=== PATIENT | female | born 1970 | race Hispanic/Latino ===

== ENCOUNTER → 2019-11-11 | Outpatient (CLI) | payer OTHER ==
[~2019-11-11] MED LIST: CETI10TA57 PO; ERGO2000 PO; METF-910 PO; METO50TA18 PO; MILK175C5 PO; OMEP40CA13 PO; THYR97.5 PO; [UNRECOGNIZED DRUG - OTHER] PO
[2019-11-11 16:32] LABS: BASOPHILS % (AUTO) 0.6 % (0.0-5.0); EOSINOPHILS % (AUTO) 2.4 % (0.0-8.0); HEMATOCRIT 43.7 % (36-48); LYMPHOCYTES % (AUTO) 29.7 % (21.0-51.0); MEAN CORPUSCULAR HEMOGLOBIN 28.2 pg (27.0-33.0); MEAN CORPUSCULAR HGB CONC 32.7 g/dL (32.0-36.0); MEAN CORPUSCULAR VOLUME 86.2 fL (79-99); MONOCYTES % (AUTO) 6.9 % (3.0-13.0); PLATELET COUNT (AUTO) 216 K/uL (130-400); RED BLOOD CELL COUNT(AUTO) 5.07 MIL/uL (4.00-5.50); WHITE BLOOD COUNT (AUTO) 6.7 K/uL (4.8-10.8)
[2019-11-11 16:40] LABS: INR 0.92 (0.85-1.15)
[2019-11-11 16:51] LABS: ALBUMIN 3.7 g/dL (3.5-5.0); BILIRUBIN,TOTAL 0.7 mg/dL (0.2-1.0); CREATININE 0.7 mg/dL (0.5-1.5); POTASSIUM 3.4 mmol/L (3.5-5.1); TOTAL PROTEIN, SERUM 7.1 g/dL (6.0-8.3)
[2019-11-11 17:03] LABS: FERRITIN 161 ng/mL (15-150); IRON, SERUM 101 mcg/dL (50-170)
[2019-11-13 08:13] LABS: HEPATITIS A ANTIBODY IGM Negative (Negative); HEPATITIS B CORE IGM Negative (Negative); HEPATITIS Bs ANTIGEN SCREEN P Negative (Negative)
[2019-11-16 16:10] LABS: ALPHA-1-ANTITRYPSIN 110 mg/dL (101-187)
== END | disposition home or self-care (01) ==
LOC: LAB 14:54
PROVIDERS: ATTEND Internal Medicine Gastroenterology
DX: Z03.818 Encounter for observation for suspected exposure to other biological agents ruled out (principal); R93.2 Abnormal findings on diagnostic imaging of liver and biliary tract
CPT/HCPCS: 36415; 80053; 80061; 81220; 82103; 82104; 82105; 82150; 82390; 82728; 83516; 83540; 83690; 85025; 85610; 86038; 86215; 86235 ×7; 86255 ×4; 86704; 86705; 86706; 86708; 86709; 87340 ×2; 87520; 87522; U0003

== ENCOUNTER 2019-11-16 10:50 | Day surgery (SDC) | payer OTHER ==
[2019-11-16] VITALS (7 sets, daily range): BP systolic 128–145; BP diastolic 82–94
[~2019-11-16] VITALS: Ht 167.6 cm; Wt 126.1 kg
[~2019-11-16 10:50] MED LIST changes: -CETI10TA57 PO; -ERGO2000 PO; -METF-910 PO; -METO50TA18 PO; -MILK175C5 PO; -OMEP40CA13 PO; +SODIUM CHLORIDE 0.9% 1000ML 1,000 ML IV ONE; -THYR97.5 PO; -[UNRECOGNIZED DRUG - OTHER] PO
[2019-11-16] MEDS ORDERED: OMEP40CA13 PO (12:11)
[2019-11-16] MEDS ORDERED: METO50TA18 PO (12:11)
[2019-11-16] MEDS ORDERED: MILK175C5 PO (12:11)
[2019-11-16] MEDS ORDERED: METF-910 PO (12:11)
[2019-11-16] MEDS ORDERED: THYR97.5 PO (12:11)
[2019-11-16] MEDS ORDERED: [UNRECOGNIZED DRUG - OTHER] PO (12:11)
[2019-11-16] MEDS ORDERED: CETI10TA57 PO (12:11)
[2019-11-16] MEDS ORDERED: ERGO2000 PO (12:11)
[2019-11-16] MEDS ORDERED: PROPOFOL 10 MG/ML 20ML VIAL IV ONE (13:18)
== END 2019-11-16 13:50 | disposition home or self-care (01) ==
LOC: DAH 10:50 → ENDO 10:50
PROVIDERS: ATTEND Internal Medicine Gastroenterology
DX: R10.11 Right upper quadrant pain (principal); K21.0 Gastro-esophageal reflux disease with esophagitis; K29.00 Acute gastritis without bleeding; B96.81 Helicobacter pylori [H. pylori] as the cause of diseases classified elsewhere; Z80.0 Family history of malignant neoplasm of digestive organs
CPT/HCPCS: 43239; A4215; A4221; A4222; A4223; A4606; A4620; A4657; A4663; J2704; J7030